=== PATIENT | male | born 1975 ===

== ENCOUNTER → 2018-11-05 | Outpatient (REF) | payer OTHER ==
[2018-11-05 14:43] LABS: COMPLEMENT C3 121 MG/DL (90-180); COMPLEMENT C4 28 MG/DL (10-40); RHEUMATOID FACTOR QUANT < 10.0 IU/ML (<15.0)
[2018-11-05 14:51] LABS: FOLATE 16.3 NG/ML; TOTAL 25(OH) VITAMIN D 41.9 NG/ML (30.0-100.0); VITAMIN B12 LEVEL 806 PG/ML
[2018-11-05 15:01] LABS: BASO % 0.8 % (0.0-1.0); EOS # 0.1 10^3/uL (0.0-0.50); EOS % 1.2 % (0.0-3.0); HEMATOCRIT 44.2 % (42.0-52.0); HEMOGLOBIN 15.3 g/dl (13.5-17.5); LYMPH % 38.2 % (24.0-44.0); MEAN CORPUSCULAR HEMOGLOBIN 28.9 pg (27.0-33.0); MEAN CORPUSCULAR HGB CONC 34.6 g/dl (32.0-36.5); MEAN CORPUSCULAR VOLUME 83.6 fl (80.0-96.0); MONO # 0.5 10^3/uL (0.0-0.8); MONO % 9.8 % (0.0-5.0); NEUTROPHILS # 2.6 10^3/uL (1.8-7.7); NEUTROPHILS % 49.8 % (36.0-66.0); PLATELET COUNT, AUTOMATED 290 10^3/uL (150-450); RED BLOOD COUNT 5.29 10^6/uL (4.30-6.10); WHITE BLOOD COUNT 5.1 10^3/uL (4.0-10.0)
[2018-11-05 16:15] LABS: ERYTHROCYTE SEDIMENTATION RATE 1 mm/hr (0-15)
[2018-11-07 00:07] LABS: ANTINUCLEAR ANTIBODIES DIRECT Negative (Negative); COMPLEMENT TOTAL (CH50) 59 U/mL (42-999999)
== END ==
LOC: M LABNEURO 10:13
PROVIDERS: ATTEND Psychiatry & Neurology Neurology
DX: R51 Headache (principal)

== ENCOUNTER → 2019-02-10 | Outpatient (REF) | payer OTHER | LOC: M LAB REF 12:29 | PROVIDERS: ATTEND Ophthalmology | DX: H02.831 Dermatochalasis of right upper eyelid (principal); H02.834 Dermatochalasis of left upper eyelid ==